=== PATIENT | male | born 1960 | race Caucasian/White ===

== ENCOUNTER 2017-01-30 10:07 | Day surgery (SDC) | payer OTHER ==
[~2017-01-30] VITALS: Ht 172.7 cm; Wt 70.0 kg
[~2017-01-30 10:07] MED LIST: ASPIRIN81 M2 PO; LISINOPRIL40 MG PO; METOPROLOL SUCC25 MG PO; NIFEDIPINE ER30 MG PO; PRILOSEC OTC20 MG PO
[2017-01-30 12:05] LABS: HEMATOCRIT 33.4 % (38.0-50.0); MCH 33.8 PG (29.0-34.0); MCHC 33.5 G/DL (30.0-36.0); MCV 100.9 FL (86-99); MEAN PLAT.VOLUME 8.8 uM^3 (9.0-12.4); PLATELET COUNT 306 K/uL (156-360); RBC DIS.WIDTH-CV 12.4 % (11.8-14.6); RBC DIS.WIDTH-SD 46.4 % (39-53); RED BLOOD COUNT 3.31 M/uL (4.00-5.50); WHITE BLOOD COUNT 7.5 K/uL (4.1-10.2)
[2017-01-30 12:42] LABS: ANION GAP 5 MEQ/L (2-14); CHLORIDE 109 MEQ/L (99-109); GFR ESTIMATE (CALCULATED) 56 mL/min/; GLUCOSE 101 mg/dL (70-99); POTASSIUM 5.2 MEQ/L (3.7-5.4); SAMPLE HEMOLYSIS CHECK 0; SAMPLE ICTERIC CHECK 0; SAMPLE LIPEMIA CHECK 0; SODIUM 136 MEQ/L (136-147); UREA NITROGEN (BUN) 37 mg/dL (9-23)
== END 2017-01-30 18:33 | disposition home or self-care (01) ==
LOC: CATH 10:07
PROVIDERS: Internal Medicine Cardiovascular Disease
DX: I25.10 Atherosclerotic heart disease of native coronary artery without angina pectoris (principal); I10 Essential (primary) hypertension; K21.9 Gastro-esophageal reflux disease without esophagitis; E21.3 Hyperparathyroidism, unspecified; Z79.82 Long term (current) use of aspirin
CPT/HCPCS: 80048; 85027; C1769; C1887; J1644; J2250; J3010